=== PATIENT | female | born 2000 | race Caucasian/White ===

== ENCOUNTER 2020-06-07 13:30 | Emergency (ER) | payer BC ==
[~2020-06-07] VITALS: Ht 167.6 cm; Wt 68.2 kg
[2020-06-07 14:57] VITALS: BP 115/77
== END 2020-06-07 14:59 | disposition home or self-care (01) ==
LOC: ER 13:30
DX: R51.9 Headache, unspecified (principal); R42 Dizziness and giddiness; H53.8 Other visual disturbances; M54.2 Cervicalgia
CPT/HCPCS: 99282